=== PATIENT | female | born 1945 | race Caucasian/White ===

== ENCOUNTER 2016-12-08 09:08 | Observation (INO) | payer MEDICARE, OTHER ==
[2016-12-08] VITALS (9 sets, daily range): BP systolic 154–184; BP diastolic 67–79; PULSE 68–83; RESP 18–20; TEMP 97.8; Ht 165.1 cm; Wt 68.5 kg
[~2016-12-08] VITALS: Ht 165.1 cm; Wt 68.5 kg
[~2016-12-08 09:08] MED LIST: ATOR10TA65 PO; CIPR500T4 PO; GLIP-160 PO; LANT3I SC; LISI20TA11 PO; MTF1000T PO
[2016-12-08] MEDS ORDERED: SOD CHLORIDE 0.9% 500 ML IV STA (10:19)
[2016-12-08] MEDS ORDERED: MECLIZINE 12.5 MG TAB PO ONE (10:30)
[2016-12-08] MEDS ORDERED: ONDANSETRON 4 MG INJ IV STA (10:36)
[2016-12-08] MEDS ORDERED: morphine 4 MG/ML VIAL IV STA (10:36)
[2016-12-08 10:48] LABS: BASOPHIL # 0.1 10^3/ul (0.0-0.1); BASOPHILS % 0.6 % (0.0-2.0); EOSINOPHILS # 0.2 10^3/ul (0.0-0.5); EOSINOPHILS % 1.7 % (0.0-7.0); HEMOGLOBIN 13.6 g/dl (12.0-16.0); LYMPHOCYTES # 2.2 10^3/ul (0.8-2.9); LYMPHOCYTES % 24.1 % (15.0-51.0); MEAN CORPUSCULAR HEMOGLOBIN 26.7 pg (29.0-33.0); MEAN CORPUSCULAR HGB CONC 32.4 g/dl (32.0-37.0); MEAN CORPUSCULAR VOLUME 82.5 fl (82.0-101.0); MEAN PLATELET VOLUME 10.7 fl (7.4-10.4); MONOCYTE # 0.4 10^3/ul (0.3-0.9); MONOCYTES % 4.2 % (0.0-11.0); NEUTROPHIL # 6.2 10^3/ul (1.6-7.5); PLATELET COUNT 189 10^3/UL (140-415); RED BLOOD COUNT 5.09 10^6/ul (4.20-5.40); RED CELL DISTRIBUTION WIDTH 12.9 % (11.5-14.5)
--- NOTE | 2016-12-08 10:57 | RADRPT ---
PROCEDURE: XR Knee. CLINICAL INDICATION: Right knee pain TECHNIQUE: 3 images of the right knee are available for review. COMPARISON: None available FINDINGS: There is no acute fracture. Alignment is normal. Joint spaces are preserved. Soft tissues are grossly unremarkable. IMPRESSION: 1. No radiographic evidence of acute osseous abnormality of the right knee. RPTAT: UU .Magdy Allred MD, MD Date Time Electronically viewed and signed by .Magdy Allred MD, on 12/08/2016 10:57 .K/
--- NOTE | 2016-12-08 11:00 | ERD ---
ER Documentation Chief Complaint Chief Complaint n/v, beltran, dizziness, weakness, unable to ambulate from dizziness, weakness HPI This is a 71-year-old female history of hypertension and diabetes who presents with symptoms that started around 7 PM last night. She describes occipital headache and neck pain with associated vertigo and dizziness and ataxia. She states the pain is approximate 5 out of 10 currently. She is having difficulty walking and veering to the right. She denies any chest pain or shortness of breath. She additionally and incidentally notes right knee pain for approximately 3 days that is usually worse with walking, worse in the morning and improved throughout the day. She denies any falls or trauma. ROS All systems reviewed and are negative except as per history of present illness. Medications Home Meds Active Scripts Ciprofloxacin Hcl* (Ciprofloxacin Hcl*) 500 Mg Tablet, 500 MG PO BID for 7 Days , TAB Prov:LONNIE [employer]ANT [employer] 02/21/14 Reported Medications Insulin Glargine* (Lantus*) 100 Unit/Ml Soln, 20 UNIT SC DAILY, EA 06/11/14 Glipizide XL* (Glipizide XL*) 5 Mg Tabsr, 10 MG PO DAILY, TAB 02/28/14 Lisinopril* (Lisinopril*) 20 Mg Tablet, 20 MG PO DAILY, TAB 02/20/14 Metformin* (Glucophage*) 1,000 Mg Tablet, 1000 MG PO BID, TAB 02/20/14 Atorvastatin Calcium (Atorvastatin Calcium) 10 Mg Tab, 10 MG PO HS, TAB 02/20/14 Allergies Allergies: Coded Allergies: No Known Allergies (Verified Allergy, Unknown, 12/08/16) PMhx/Soc History of Surgery: Yes (GALL BLADDER) Anesthesia Reaction: No Hx Neurological Disorder: No Hx Respiratory Disorders: No Hx Cardiac Disorders: Yes (HTN) Hx Psychiatric Problems: No Hx Miscellaneous Medical Probl: No Hx Alcohol Use: No Hx Substance Use: No Hx Tobacco Use: No FmHx Family History: No diabetes Physical Exam Vitals Vital Signs Date Time Temp Pulse Resp B/P Pulse Ox O2 Delivery O2 Flow Rate FiO2 12/08/16 10:15 2 12/08/16 10:15 Nasal Cannula 2.0 12/08/16 10:15 97.8 70 18 171/79 100 Nasal Cannula 2.0 12/08/16 09:16 97.7 67 20 200/83 100 Physical Exam General: Well developed, well nourished, no acute distress Head: Normocephalic, atraumatic. Eyes: Pupils equally reactive, EOM intact ENT: Moist mucous membranes Neck: Supple, no lymphadenopathy Respiratory: Lungs clear bilaterally, no distress Cardiovascular: RRR, no murmurs, rubs, or gallops Abdominal: Soft, non-tender, non-distended, no peritoneal signs : Deferred MSK: No edema, no unilateral swelling, 5/5 strength. Right knee with full active and passive range of motion, slight warmth but no effusion, no bony abnormalities, 2+ dorsalis pedis and posterior tibial pulses to the right lower extremity. Neurologic: Alert and oriented, moving all extremities, normal speech, no focal weakness, no cerebellar signs, normal rapid alternating movements, unable to visualize gait Skin: No rash Psych: Normal mood Result Diagram: 12/08/16 1030 12/08/16 1030 Results 24 hrs Laboratory Tests Test 12/08/16 10:30 12/08/16 10:57 White Blood Count 9.010^3/ul Red Blood Count 5.0910^6/ul Hemoglobin 13.6g/dl Hematocrit 42.0% Mean Corpuscular Volume 82.5fl Mean Corpuscular Hemoglobin 26.7pg Mean Corpuscular Hemoglobin Concent 32.4g/dl Red Cell Distribution Width 12.9% Platelet Count 35146^3/UL Mean Platelet Volume 10.7fl Neutrophils % 69.0% Lymphocytes % 24.1% Monocytes % 4.2% Eosinophils % 1.7% Basophils % 0.6% Nucleated Red Blood Cells % 0.0/100WBC Neutrophils # 6.210^3/ul Lymphocytes # 2.210^3/ul Monocytes # 0.410^3/ul Eosinophils # 0.210^3/ul Basophils # 0.110^3/ul Nucleated Red Blood Cells # 0.010^3/ul Prothrombin Time 13.4Sec Prothrombin Time Ratio 1.0 INR International Normalized Ratio 1.02 Activated Partial Thromboplast Time 23.6Sec Sodium Level 143mmol/L Potassium Level 4.5mmol/L Chloride Level 104mmol/L Carbon Dioxide Level 27mmol/L Anion Gap 17 Blood Urea Nitrogen 18mg/dl Creatinine 0.66mg/dl Glucose Level 256mg/dl Hemoglobin A1c 9.6% Calcium Level 9.8mg/dl Troponin I < 0.012ng/ml Bedside Glucose 231mg/dL Current Medications Medications (Trade) Dose Ordered Sig/Kavon Route PRN Reason Start Time Stop Time Status Last Admin Dose Admin Sodium Chloride (NS) 500 ml @ 500 mls/hr Q1H STAT IV 12/08/16 10:19 12/08/16 11:18 DC Meclizine HCl (Antivert) 12.5 mg ONCE ONCE PO 12/08/16 10:30 12/08/16 10:31 DC Morphine Sulfate (morphine) 4 mg ONCE STAT IV 12/08/16 10:36 12/08/16 10:37 DC Ondansetron HCl (Zofran Inj) 4 mg ONCE STAT IV 12/08/16 10:36 12/08/16 10:37 DC IV Flush 10 ml 10 ml STK-MED ONCE .ROUTE 12/08/16 12:38 12/08/16 12:39 DC Sodium Chloride (NS) 100 ml @ ud STK-MED ONCE .ROUTE 12/08/16 12:38 12/08/16 12:39 DC Iodixanol (Visipaque Locm) 100 ml STK-MED ONCE .ROUTE 12/08/16 12:38 12/08/16 12:39 DC Ondansetron HCl (Zofran Inj) 4 mg ER BRIDGE PRN IV NAUSEA AND/OR VOMITING 12/08/16 13:30 12/09/16 13:29 Acetaminophen (Tylenol Tab) 650 mg ER BRIDGE PRN PO MILD PAIN/FEVER 12/08/16 13:30 12/09/16 13:29 Procedures/MDM EKG, MONITORS, & DIAGNOSTIC IMAGING: EKG: I reviewed and interpreted a 12-lead EKG. Rhythm: Normal sinus rhythm Ectopy: None Intervals: No abnormalities ST segments: No elevations or depressions T waves: No contiguous inversions Chest x-ray: I reviewed and interpreted a 1 view of the chest Mediastinum: No enlargement Cardiac silhouette: No cardiomegaly Airspace: Clear lung brown bilaterally without evidence of pneumothorax Bones: No evidence of fracture X-ray right knee: I reviewed and interpreted multiple views of the x-ray Bones: No evidence of acute fracture dislocation or subluxation Soft tissue: No evidence of foreign body CT brain: No evidence of acute intracranial process per radiologist CTA head and neck: IMPRESSION: 1. Severe segmental stenosis of M1 segment of left middle cerebral artery. 2. Multifocal moderate to severe stenosis of the right posterior cerebral artery. 3. Mild to moderate stenosis of cavernous and supraclinoid segments of the internal carotid arteries. 4. Otherwise no significant stenosis in the remainder of major intracranial arteries. A call report was made and above findings were discussed and acknowledged by Dave Carolina on 12/08/2016 1:26 PM . RPTAT: GG LAB INTERPRETATION: No significant leukocytosis, negative troponin MEDICAL DECISION MAKING: The patient presents with multiple issues including headache, neck pain, vertigo and ataxia. 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 She is greater than 12 hours of symptoms. She is describing ataxia. Given her age and hypertension this does raise a concern for central vertigo, consideration for VBI or stroke. Given her pain there is some consideration for dissection. For this reason I believe CT imaging of the head as well as CTA of the head and neck is indicated. The patient will benefit from inpatient hospitalization for MRI imaging. Additionally the patient is describing incidental right knee pain. I believe this is most consistent with osteoarthritis, no evidence of septic arthritis or fracture. No evidence of DVT. X-ray imaging is indicated. Further outpatient follow-up would be appropriate. ER COURSE: The patient continues to be well-appearing, aspirin provided. Blood pressure improving and permissive hypertension will be observed. The patient will be admitted for further management and MRI imaging of the brain. I kept the patient and/or family informed of laboratory and diagnostic imaging results throughout the emergency room course. DISPOSITION PLAN: Telemetry admission to rule out stroke CONSULTATION: Accepting care team and consultations: I discussed the current laboratory data, diagnostic imaging and emergency care provided. Admitting team: Dr. Amin Admitting team indication: Insurance directed Departure Diagnosis: Primary Impression: Hypertensive urgency Additional Impression: Ataxia Condition: Stable DAVE GERARDO MD Dec 08, 2016 11:00
[2016-12-08 11:11] LABS: ANION GAP 17 (8-16); BLOOD UREA NITROGEN 18 mg/dl (7-20); CALCIUM 9.8 mg/dl (8.4-10.2); CARBON DIOXIDE 27 mmol/L (21-31); CHLORIDE 104 mmol/L (97-110); CREATININE 0.66 mg/dl (0.44-1.00); GLUCOSE 256 mg/dl (70-220); POTASSIUM 4.5 mmol/L (3.5-5.1); SODIUM 143 mmol/L (135-144)
[2016-12-08 11:16] LABS: PARTIAL THROMBOPLASTIN TIME 23.6 Sec (25.0-35.0)
[2016-12-08 11:23] LABS: INR 1.02; PROTIME 13.4 Sec (12.2-14.2)
[2016-12-08 11:28] LABS: TROPONIN-I < 0.012 ng/ml (0.00-0.12)
--- NOTE | 2016-12-08 11:42 | RADRPT ---
PROCEDURE: CT Brain without contrast. CLINICAL INDICATION: Possible stroke. Nausea. TECHNIQUE: CT scan of the brain was performed on a multidetector high-resolution CT scan. Axial im aging was obtained of the brain without contrast administration. Coronal and sagittal reformatted i mages were obtained from the axial source images. Standard CT scan of the head without contrast prot ocols were performed. The total exam CTDI equals 44.4 mGy and the total exam DLP equals 720.23 mGy-cm. One or more of the following dose reduction techniques were used: - Automated exposure control. - Adjustment of the mA and/or kV according to patient size. Use of iterative reconstruction technique. COMPARISON: CT head without contrast 06/11/2014 FINDINGS: The ventricular system and peripheral CSF spaces are proportionate prominent consistent with mild ge neralized cerebral volume loss. Negative for intracranial masses hemorrhages or midline shift. The g ray-white matter junction is unremarkable. There is atherosclerotic heart plaque involving the jerardo nous carotid arteries. There is chronic bilateral ethmoid left frontal and right maxillary sinus dis ease. The mastoids are unremarkable. The bones of the calvarium are intact. IMPRESSION: 1. No significant change. 2. Mild generalized cerebral volume loss without evidence of intracranial masses hemorrhages or mid line shift. 3. Chronic sinusitis. RPTAT:AAJJ Physician Leona Date Time Electronically viewed and signed by Physician Leona on 12/08/2016 11:42 BM/
--- NOTE | 2016-12-08 11:44 | RADRPT ---
PROCEDURE: XR Chest 1 View. CLINICAL INDICATION: Shortness of breath. TECHNIQUE: AP view of the chest was obtained. COMPARISON: June 11, 2014 FINDINGS: The heart size is within normal limits. Calcified atherosclerosis is noted in the aorta. Scattered atelectasis is noted in both lungs. No consolidations are identified. No pneumothorax is seen. . El evated right hemidiaphragm is noted. Osseous structures are intact. IMPRESSION: Calcified atherosclerosis in the aorta. Scattered atelectasis in both lungs. Elevated right hemidiaphragm. RPTAT: AA .Tony Sosa MD, MD Date Time Electronically viewed and signed by .Tony Sosa MD, MD on 12/08/2016 11:43 .P/
[2016-12-08] MEDS ORDERED: SOD CHLORIDE 0.9% 100 ML ONE (12:38)
[2016-12-08] MEDS ORDERED: IODIXANOL LOCM 100 ML BTL ONE (12:38)
--- NOTE | 2016-12-08 13:08 | RADRPT ---
PROCEDURE: CT SCAN angiogram neck WITH IV CONTRAST CLINICAL INDICATION: Stroke, dizziness, vomiting TECHNIQUE: Transaxial slices with IV contrast was obtained throughout the entire neck. Additional s agittal and coronal reconstruction images were acquired. One of more of the following dose reduction techniques were utilized: -automatic exposure control.-adjustment of the mA and/or kV according to patient size. -Use of iterative reconstruction technique. Contrast: ... Radiation Dose: CTDI is 19.53 mGy. DLP is 810.65 mGy-cm. COMPARISON: CT head 12/08/2016 FINDINGS: Normal origin of the great vessels noted from the aortic arch. Tortuous right brachial cephalic alice ry is seen. Both common carotid arteries are patent bilateral vertebral arteries are patent and equa l caliber. Bilateral ICA patent in the cervical portion, carotid canal. Moderate calcification intra cranial ICA noted at the level of cavernous sinus. Bilateral external carotid arteries are also busch nt. Basilar artery, posterior cerebral artery, right posterior communicating artery, M1, M2, A1, A2 segm ents are patent and without aneurysm, AV fistula or vascular occlusion noted. Limited slices through the lung apices demonstrate cardiomegaly with an unremarkable lung brown. No saddle emboli or mediastinal adenopathy noted. Degenerative changes noted in the dorsal spine. Enla rged right lobe of thyroid with a calcified 1.7 cm nodule is noted. Both jugular veins are patent. M oderate opacification of the ethmoid, right maxillary, left frontal air cells seen bilaterally IMPRESSION: Patent common carotid, internal, external carotid arteries in the neck. Patent [place]. Pansinusitis RPTAT: AAOO Physician Sharona Date Time Electronically viewed and signed by Physician Sharona on 12/08/2016 13:08 MB/
[2016-12-08] MEDS ORDERED: ACETAMINOPHEN 325 MG TAB PO PRN ×2 (13:30→14:30)
[2016-12-08] MEDS ORDERED: ONDANSETRON 4 MG INJ IV PRN ×2 (13:30→14:30)
--- NOTE | 2016-12-08 13:32 | RADRPT ---
AMENDMENT: 12/08/2016 2:10:04 PM Marc Condon M.d Correction: CT angiogram of the head was revisited. There is severe left M1 Stenosis noted. PROCEDURE: CTA head and neck CLINICAL INDICATION: Neurological deficit. CVA. TECHNIQUE: The study was performed utilizing multidetector CT scanner. Direct thin section axial s ections were obtained through the head and neck after the uneventful administration of 90 cc of Visi paque 320 nonionic intravenous contrast material. Coronal and sagittal as well as maximal intensity projection reformations were obtained. 3-D images were made. The images were reviewed on a PACS [facility]. One or more the following does reduction techniques were utilized: Automated exposure con trol, adjustment of the mA/ or kV according to patient's size, or use of iterative reconstruction te chnique. The total CTDIvol is 14.85, 19.53 mGy and the DLP is 818.07 mGy-cm. COMPARISON: Brain CT of the same day. FINDINGS: There are atherosclerosis calcifications of cavernous and supraclinoid segments of the internal ow[place] arteries with associated mild to moderate stenosis. The petrous segments of internal carotid art eries are patent without significant stenosis. There is severe segmental stenosis of M1 segment of left middle cerebral artery. There is reconstitu tion of flow in the to this segments of the left middle cerebral artery. The proximal right middle cerebral artery and bilateral anterior cerebral arteries are patent withou t significant stenosis. Multifocal moderate to severe stenosis of the right posterior cerebral artery is noted. The intracranial vertebral arteries, basilar artery, and left foci cerebral artery are also unremark able without significant stenosis. No aneurysm or vascular malformation is identified. IMPRESSION: 1. Severe segmental stenosis of M1 segment of left middle cerebral artery. 2. Multifocal moderate to severe stenosis of the right posterior cerebral artery. 3. Mild to moderate stenosis of cavernous and supraclinoid segments of the internal carotid arterie s. 4. Otherwise no significant stenosis in the remainder of major intracranial arteries. A call report was made and above findings were discussed and acknowledged by Dave Carolina on 12/08/2016 1:26 PM . RPTAT: GG Merlin Condon, Physician Date Time Electronically viewed and signed by Merlin Condon, Physician on 12/08/2016 14:10 MB/
[2016-12-08] MEDS ORDERED: ASPIRIN 81 MG TAB PO ONE (14:00)
[2016-12-08] MEDS ORDERED: ACETAMINOPHEN 650 MG SUPP PR PRN (14:30)
[2016-12-08] MEDS ORDERED: LISINOPRIL 20 MG TAB PO ONE (14:30)
[2016-12-08] MEDS ORDERED: HYDROCODONE/APAP (5/325) TAB PO PRN (14:30)
[2016-12-08] MEDS ORDERED: NACL 0.9% 3 ML SYG IV SCH (14:30)
--- NOTE | 2016-12-08 14:33 | HP ---
Date/Time of Note Date/Time of Note DATE: 12/08/16 TIME: 14:13 Assessment/Plan VTE Prophylaxis VTE Prophylaxis Intervention: LMWH Lines/Catheters IV [facility] Type [facility] Saline Lock Assessment/Plan Chief Complaint/Hosp Course 71-year-old female with a past medical history of hypertension, hypercholesterolemia, presented to the emergency room for evaluation of dizziness associated with nausea and vomiting started overnight. 1. 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 CTA with Severe segmental stenosis of M1 segment of left middle cerebral artery, Multifocal moderate to severe stenosis of the right posterior cerebral artery. CTA neck with no significant stenosis of carotid arteries. PLAN: -Admit as inpatient for further neurology evaluation. -Start maximal medical therapy with dual antiplatelet agents, high intensity statin and antihypertensives. -Lifestyle modification with weight reduction and healthy diet advised. 2. Possible vertigo/disequilibrium. Symptoms resolved at this time. -Meclizine trial. Will consider adding low-dose benzodiazepine if indicated. -Recommend outpatient ENT evaluation. 3. Hypertensive urgency. -Resume lisinopril and adjust dose to 40 mg for better blood pressure control. 4. Hypercholesterolemia. -Resume statin and adjust dose to high intensity. 5.DMII -Obtain A1c. Accu-Cheks/ISS/Lantus. -Carb controlled diet. DVT prophylaxis: Lovenox. Plan: Patient will be admitted to inpatient unit. We will also obtain fasting lipid panel, A1c and TSH level. Patient will be started on a diet. Patient will have neurology evaluation. Patient also will have PT evaluation and treatment. Rest of the management depend on hospital course. Approximately 60 minutes was spent on this history and physical. Patient is seen in collaboration with Dr. Randall Problems: HPI/ROS Admit Date/Time Admit Date/Time Hx of Present Illness This is a 71-year-old female history of type 2 diabetes, hypertension and hypercholesterolemia who presented with dizziness and unsteady gait associated with headache, nausea and vomiting which started around 7 PM last night. She denied any chest pain, palpitation, numbness/tingling, vision changes, speech difficulties, oral, ear discharges, earache, tinnitus or shortness of breath. Patient denied any falls. Initial labs unremarkable except for elevated blood glucose 256. Patient also had elevated blood pressure 200/83 upon presentation. EKG without any ST or T- wave changes. Patient was given some IV fluids , antiemetics and meclizine in the emergency room with some improvement in her symptoms. A CTA of brain showed Severe segmental stenosis of M1 segment of left middle cerebral artery, Multifocal moderate to severe stenosis of the right posterior cerebral artery and Mild to moderate stenosis of cavernous and supraclinoid segments of the internal carotid arteries. CTA neck was negative for any carotid stenosis. Patient was admitted for further evaluation. ROS A 12 point review of system was assessed and is negative other than what is mentioned in the HPI. PMH/Family/Social Past Surgical History See HPI Social History Patient denied history of alcohol, smoking or illicit drug use. Smoking Status: Never smoker Exam/Review of Systems Vital Signs Vitals Vital Signs Date Time Temp Pulse Resp B/P Pulse Ox O2 Delivery O2 Flow Rate FiO2 12/08/16 10:15 2 12/08/16 10:15 Nasal Cannula 12/08/16 10:15 97.8 70 18 171/79 100 Exam Exam General: Well developed,adequately built female, not in any acute distress . HEENT: Normocephalic, Atraumatic, No laceration or hematoma; Eyes: PEERL, Conjunctiva clear, Anicteric sclera Neck: Supple without any lymphadenopathy, nontender, no JVD, no carotid bruits, trachea midline, no thyromegaly Cardiac: S1, S2 auscultated, regular rhythm and rate, no mumurs or gallop Pulmonary: Normal respiratory effort. Chest clear to auscultation bilaterally, no adventitious breath sounds GI: Abdomen normal to inspection. Soft, non tender, non- distended, no masses, no rebound tenderness or guarding. Bowel sounds active on all four quadrants Genitourinary: Deferred Extremities: No cyanosis, clubbing, or edema. Pulses [2+] bilaterally. Full ROM on all four extremities. No focal weakness appreciated. Neurologic: Alert to person, place, time, and situation. Affect appropriate, intact sensation. Skin: Clean,dry, and intact. No ecchymosis, no rashes, or lesions Labs Result Diagram: 12/08/16 1030 12/08/16 1030 Medications Medications Current Medications Insulin Glargine (Lantus) 20 unit DAILY SC ; Start 12/09/16 at 09:00; Status UNV Lisinopril (Zestril) 20 mg DAILY PO ; Start 12/09/16 at 09:00; Status UNV Atorvastatin Calcium (Lipitor) 80 mg HS PO ; Start 12/08/16 at 21:00; Status UNV Aspirin (Aspirin) 81 mg DAILY PO ; Start 12/09/16 at 09:00; Status UNV Clopidogrel Bisulfate 75 mg 75 mg DAILY PO ; Start 12/09/16 at 09:00; Status UNV Sodium Chloride (NS) 1,000 ml @ 75 mls/hr [id number] IV ; Start 12/08/16 at 14:03 ; Status UNV Ondansetron HCl (Zofran Inj) 4 mg Q6H PRN IV NAUSEA AND/OR VOMITING; Start 12/08/16 at 14:30; Status UNV Acetaminophen (Tylenol Tab) 650 mg Q6H PRN PO PAIN LEVEL 1-3 OR FEVER; Start 12/08/16 at 14:30; Status UNV Acetaminophen (Tylenol Supp) 650 mg Q6H PRN CO PAIN LEVEL 1-3 OR FEVER; Start 12/08/16 at 14:30; Status UNV Acetaminophen/ Hydrocodone Bitart ([place] (5/325)) 1 tab Q6H PRN PO MODERATE PAIN LEVEL 4-6; Start 12/08/16 at 14:30; Status UNV Enoxaparin Sodium (Lovenox) 40 mg DAILY SC ; Start 12/09/16 at 09:00; Status UNV Miscellaneous Information (* Miscellaneous Pharmacy Order) Discontinue current oral sulfonylur... ONCE ONCE XX ; Start 12/08/16 at 14:30; Stop 12/08/16 at 14: 31; Status UNV Diagnostic Test (Pha) (Accu-Chek) XX ; Start 12/09/16 at 02:00; Status UNV Miscellaneous Information (* Miscellaneous Pharmacy Order) HYPOGLYCEMIA PROTOCOL w... ONCE ONCE XX ; Start 12/08/16 at 14:30; Stop 12/08/16 at 14:31; Status UNV Miscellaneous Information (* Miscellaneous Pharmacy Order) Discontinue all previ... ONCE ONCE XX ; Start 12/08/16 at 14:30; Stop 12/08/16 at 14:31; Status UNV Meclizine HCl (Antivert) 25 mg BID PO ; Start 12/08/16 at 21:00; Status UNV KATHERIN AYALA NP Dec 08, 2016 14:24
[2016-12-08] MEDS ORDERED: GLUCAGON 1 MG INJ IM PRN (15:00)
[2016-12-08] MEDS ORDERED: GLUCOSE GEL 15 GRAM TUBE PO PRN ×2 (15:00)
[2016-12-08] MEDS ORDERED: GLUCOSE GEL 15 GRAM TUBE BUCCAL PRN (15:00)
[2016-12-08] MEDS ORDERED: DEXTROSE 50% 50 ML SYRINGE IV PRN ×2 (15:00)
[2016-12-08] MEDS: SOD CHLORIDE 0.9% 1,000 ML IV SCH (17:00)
[2016-12-08] MEDS ORDERED: INFLUENZA VIRUS VACCINE 0.5 ML (DISPENSING) IM* ONE (18:30)
--- NOTE | 2016-12-08 20:27 | RADRPT ---
Echocardiogram Report Patient Name: GABI RASMUSSEN Gender: Female Date: 1945 Study Date: 08-Dec-2016 [employer]: [facility] Location: [facility] Ref. Physician: KATHERIN AYALA Quality: Adequate Procedures: Transthoracic echocardiogram with complete 2D, M-Mode, and doppler examination. Indications: Dizziness. 2D/M Mode Doppler Measurement Value Normal Ranges Measurement Value Normal Ranges LVIDd 2D 3.8 3.5 - 5.6 cm AV Peak Cameron 1.2 m/sec LVIDs 2D 2.3 2.1 - 4.1 cm AV Peak PG 6.0 mmHg FS 2D 38.9 % LVOT Peak Cameron 0.9 m/sec LVPWd 2D 1.3 0.6 - 1.1 cm LVOT Peak PG 4.0 mmHg IVSd 2D 1.3 0.6 - 1.1 cm MV E Peak Cameron 0.8 m/sec IVS/LVPW 2D 1.0 MV A Peak Cameron 1.1 m/sec AoR Diam 2D 2.5 2.0 - 3.7 cm MV E/A 0.8 LA/Ao 2D 2 0 - 1 MV Decel Time 246 msec EDV 2D 54.0 cm3 MV E/A 0.8 ESV 2D 12.3 cm3 TR Peak Cameron 3.6 m/sec LA Dimen 2D 4.2 2.3 - 4.0 cm TR Peak PG 51.0 mmHg RVSP 54.0 mmHg Findings Left Ventricle: Hyperdynamic left ventricular systolic function. Normal left ventricular cavity size. Mild concentric left ventricular hypertrophy. Ejection fraction is visually estimated at >65 %. Tissue Doppler/Mitral Doppler indices are consistent with impaired relaxation (Stage I diastolic dysfunction). Right Ventricle: Normal right ventricular size. Normal right ventricular systolic function. Left Atrium: There is mild enlargement of left atrium. Right Atrium: The right atrium is normal in size. Mitral Valve: Mild mitral leaflet calcification. Mild mitral annular calcification. Mild mitral valve regurgitation. Aortic Valve: No significant aortic stenosis. Aortic cusps appear mildly calcified. Trace aortic valve regurgitation. Tricuspid Valve: Normal appearance of the tricuspid valve. Estimated peak PA systolic pressure 54 mmHg. There is mild to moderate tricuspid regurgitation. Pulmonic Valve: Pulmonic valve not well visualized. There is trace pulmonic regurgitation. Pericardium: Normal pericardium with no significant pericardial effusion. Aorta: Normal aortic root. IVC: Normal size and normal respiratory collapse consistent with normal right atrial pressure. Conclusions 1.Hyperdynamic left ventricular systolic function. Normal left ventricular cavity size. Mild concentric left ventricular hypertrophy. Ejection fraction is visually estimated at >65 %. Tissue Doppler/Mitral Doppler indices are consistent with impaired relaxation (Stage I diastolic dysfunction). 2.There is mild enlargement of left atrium. 3.Mild mitral leaflet calcification. Mild mitral annular calcification. Mild mitral valve regurgitation. 4.No significant aortic stenosis. Aortic cusps appear mildly calcified. Trace aortic valve regurgitation. 5.Normal appearance of the tricuspid valve. Estimated peak PA systolic pressure 54 mmHg. There is mild to moderate tricuspid regurgitation. 6.Pulmonic valve not well visualized. There is trace pulmonic regurgitation. Electronically Signed By: Tony Triana 08-Dec-2016 20:26:10 -0700 Patient Name: GABI RASMUSSEN Study Date: 08-Dec-2016 [id number]
[2016-12-08] MEDS: ATORVASTATIN 80 MG TAB PO SCH (21:32)
[2016-12-08] MEDS: MECLIZINE 25 MG TAB PO SCH (21:32)
[2016-12-08] MEDS: INSULIN ASPART [NOVOLOG] 3 ML PEN SC SCH (21:39)
[2016-12-08] MEDS ORDERED: hydrALAzine 20 MG INJ IV PRN (22:30)
[2016-12-09] VITALS (12 sets, daily range): BP systolic 145–170; BP diastolic 70–79; PULSE 63–104; RESP 16–18
[2016-12-09] MEDS: ACCU-CHEK XX SCH (02:31)
[2016-12-09] MEDS: SOD CHLORIDE 0.9% 1,000 ML IV SCH ×3 (05:11→21:05)
[2016-12-09 07:25] LABS: BASOPHIL # 0.1 10^3/ul (0.0-0.1); BASOPHILS % 0.8 % (0.0-2.0); EOSINOPHILS # 0.4 10^3/ul (0.0-0.5); EOSINOPHILS % 5.3 % (0.0-7.0); HEMATOCRIT 40.2 % (37.0-47.0); HEMOGLOBIN 12.5 g/dl (12.0-16.0); LYMPHOCYTES # 2.9 10^3/ul (0.8-2.9); LYMPHOCYTES % 43.7 % (15.0-51.0); MEAN CORPUSCULAR HEMOGLOBIN 25.9 pg (29.0-33.0); MEAN CORPUSCULAR HGB CONC 31.1 g/dl (32.0-37.0); MEAN CORPUSCULAR VOLUME 83.4 fl (82.0-101.0); MEAN PLATELET VOLUME 10.8 fl (7.4-10.4); MONOCYTE # 0.5 10^3/ul (0.3-0.9); MONOCYTES % 7.1 % (0.0-11.0); NEUTROPHIL # 2.9 10^3/ul (1.6-7.5); NEUTROPHILS % 42.6 % (39.0-77.0); PLATELET COUNT 173 10^3/UL (140-415); RED BLOOD COUNT 4.82 10^6/ul (4.20-5.40); RED CELL DISTRIBUTION WIDTH 13.3 % (11.5-14.5); WHITE BLOOD COUNT 6.7 10^3/ul (4.8-10.8)
[2016-12-09 07:54] LABS: ALBUMIN 3.3 g/dl (3.3-4.9); ALBUMIN/GLOBULIN RATIO 1.06; BILIRUBIN,INDIRECT 0.3 mg/dl (0-1.1); BILIRUBIN,TOTAL 0.3 mg/dl (0.2-1.3); CREATININE 0.7 mg/dl (0.44-1.00); MAGNESIUM 1.4 mg/dl (1.7-2.5); PHOSPHORUS 3.9 mg/dl (2.5-4.9); POTASSIUM 4.2 mmol/L (3.5-5.1); TOTAL PROTEIN 6.4 g/dl (6.1-8.1)
[2016-12-09] MEDS: INSULIN ASPART [NOVOLOG] 3 ML PEN SC SCH ×4 (08:12→21:00)
[2016-12-09] MEDS ORDERED: LISINOPRIL 20 MG TAB PO SCH (09:00)
[2016-12-09] MEDS: ENOXAPARIN 40 MG/0.4 ML SYG SC SCH (09:14)
--- NOTE | 2016-12-09 09:15 | PN ---
Date/Time of Note Date/Time of Note DATE: 12/09/16 TIME: 09:11 Assessment/Plan VTE Prophylaxis VTE Prophylaxis Intervention: LMWH Lines/Catheters IV C[facility]ter Type [facility] Peripheral IV Assessment/Plan Chief Complaint/Hosp Course 71-year-old female with a past medical history of hypertension, hypercholesterolemia, presented to the emergency room for evaluation of dizziness associated with nausea and vomiting started overnight. 1. 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 CTA with Severe segmental stenosis of M1 segment of left middle cerebral artery, Multifocal moderate to severe stenosis of the right posterior cerebral artery. CTA neck with no significant stenosis of carotid arteries. PLAN: -F/u with neurology recs on further studies/management -Continue maximal medical therapy with dual antiplatelet agents, high intensity statin and antihypertensives. -Lifestyle modification with weight reduction and healthy diet advised. 2. Possible vertigo/disequilibrium. Symptoms resolved at this time. -Continue Meclizine. Will consider adding low-dose benzodiazepine if indicated. -Recommend outpatient ENT evaluation. 3. Hypertensive urgency.Now stable. -Continue Lisinopril 40 mg. Patient may need further addition of BP meds-will monitor trends. 4. Hypercholesterolemia. -Continue Lipitor 80mg 5.Poor;y controlled DMII. A1C 9.7 -Continue Accu-Cheks/ISS/Lantus. -Carb controlled diet, DM education. DVT prophylaxis: Lovenox. Plan: PT eval/tx. F/u neurology recs. Patient is seen in collaboration with Dr. Randall Problems: Subjective 24 Hr Interval Summary Free Text/Dictation No acute distress. Exam/Review of Systems Vital Signs Vitals Vital Signs Date Time Temp Pulse Resp B/P Pulse Ox O2 Delivery O2 Flow Rate FiO2 12/09/16 08:27 64 12/09/16 07:18 98.1 18 158/70 96 12/08/16 19:07 Room Air 12/08/16 14:00 2.0 Intake and Output 12/08/16 12/08/16 12/09/16 15:00 23:00 07:00 Intake Total 1475 ml Balance 1475 ml Exam General: Well developed,adequately built female, not in any acute distress . HEENT: Normocephalic, Atraumatic, No laceration or hematoma; Eyes: PEERL, Conjunctiva clear, Anicteric sclera Neck: Supple without any lymphadenopathy, nontender, no JVD, no carotid bruits, trachea midline, no thyromegaly Cardiac: S1, S2 auscultated, regular rhythm and rate, no mumurs or gallop Pulmonary: Normal respiratory effort. Chest clear to auscultation bilaterally, no adventitious breath sounds GI: Abdomen normal to inspection. Soft, non tender, non- distended, no masses, no rebound tenderness or guarding. Bowel sounds active on all four quadrants Genitourinary: Deferred Extremities: No cyanosis, clubbing, or edema. Pulses [2+] bilaterally. Full ROM on all four extremities. No focal weakness appreciated. Neurologic: Alert to person, place, time, and situation. Affect appropriate, intact sensation. Skin: Clean,dry, and intact. No ecchymosis, no rashes, or lesions Results Result Diagram: 12/09/16 0659 12/09/16 0659 Results 24 hrs Laboratory Tests Test 12/08/16 10:30 12/08/16 10:57 12/08/16 16:27 12/08/16 21:35 White Blood Count 9.0 Red Blood Count 5.09 Hemoglobin 13.6 Hematocrit 42.0 Mean Corpuscular Volume 82.5 Mean Corpuscular Hemoglobin 26.7 L Mean Corpuscular Hemoglobin Concent 32.4 Red Cell Distribution Width 12.9 Platelet Count 189 Mean Platelet Volume 10.7 #H Neutrophils % 69.0 Lymphocytes % 24.1 Monocytes % 4.2 Eosinophils % 1.7 Basophils % 0.6 Nucleated Red Blood Cells % 0.0 Neutrophils # 6.2 Lymphocytes # 2.2 Monocytes # 0.4 Eosinophils # 0.2 Basophils # 0.1 Nucleated Red Blood Cells # 0.0 Prothrombin Time 13.4 Prothrombin Time Ratio 1.0 INR International Normalized Ratio 1.02 Activated Partial Thromboplast Time 23.6 L Sodium Level 143 Potassium Level 4.5 Chloride Level 104 Carbon Dioxide Level 27 Anion Gap 17 H Blood Urea Nitrogen 18 Creatinine 0.66 Glucose Level 256 H Hemoglobin A1c 9.7 H Calcium Level 9.8 Troponin I < 0.012 Triglycerides Level 191 H Cholesterol Level 172 LDL Cholesterol, Calculated 91 HDL Cholesterol 43 Cholesterol/HDL Ratio 4.0 Thyroid Stimulating Hormone (TSH) 0.581 Bedside Glucose 231 H 245 H 229 H Test 12/09/16 02:26 11/2/17 06:59 12/09/16 08:02 Bedside Glucose 166 168 White Blood Count 6.7 # Red Blood Count 4.82 Hemoglobin 12.5 Hematocrit 40.2 Mean Corpuscular Volume 83.4 Mean Corpuscular Hemoglobin 25.9 L Mean Corpuscular Hemoglobin Concent 31.1 L Red Cell Distribution Width 13.3 Platelet Count 173 Mean Platelet Volume 10.8 H Neutrophils % 42.6 Lymphocytes % 43.7 Monocytes % 7.1 Eosinophils % 5.3 Basophils % 0.8 Nucleated Red Blood Cells % 0.0 Neutrophils # 2.9 Lymphocytes # 2.9 Monocytes # 0.5 Eosinophils # 0.4 Basophils # 0.1 Nucleated Red Blood Cells # 0.0 Sodium Level 143 Potassium Level 4.2 Chloride Level 109 Carbon Dioxide Level 27 Anion Gap 11 Blood Urea Nitrogen 16 Creatinine 0.70 Glucose Level 181 Calcium Level 9.0 Phosphorus Level 3.9 Magnesium Level 1.4 L Total Bilirubin 0.3 Direct Bilirubin 0.00 Indirect Bilirubin 0.3 Aspartate Amino Transf (AST/SGOT) 23 Alanine Aminotransferase (ALT/SGPT) 34 Alkaline Phosphatase 76 Total Protein 6.4 Albumin 3.3 Globulin 3.10 Albumin/Globulin Ratio 1.06 Medications Medications Current Medications Insulin Glargine (Lantus) 20 unit DAILY SC ; Start 12/09/16 at 09:00 Atorvastatin Calcium (Lipitor) 80 mg HS PO Last administered on 12/08/16 21:32 ; Admin Dose 80 MG; Start 12/08/16 at 21:00 Aspirin (Aspirin) 81 mg DAILY PO ; Start 12/09/16 at 09:00 Clopidogrel Bisulfate 75 mg 75 mg DAILY PO ; Start 12/09/16 at 09:00 Sodium Chloride (NS) 1,000 ml @ 75 mls/hr [id number] IV Last administered on 12/09 05:11; Admin Dose 75 MLS/HR; Start 12/08/16 at 14:03 Ondansetron HCl (Zofran Inj) 4 mg Q6H PRN IV NAUSEA AND/OR VOMITING; Start 12/08/16 at 14:30 Acetaminophen (Tylenol Tab) 650 mg Q6H PRN PO PAIN LEVEL 1-3 OR FEVER; Start 12/08/16 at 14:30 Acetaminophen (Tylenol Supp) 650 mg Q6H PRN RI PAIN LEVEL 1-3 OR FEVER; Start 12/08/16 at 14:30 Acetaminophen/ Hydrocodone Bitart ([place] (5/325)) 1 tab Q6H PRN PO MODERATE PAIN LEVEL 4-6; Start 12/08/16 at 14:30 Enoxaparin Sodium (Lovenox) 40 mg DAILY SC ; Start 12/09/16 at 09:00 Diagnostic Test (Pha) (Accu-Chek) 1 ea 02 XX Last administered on 12/09/16 02: 31; Admin Dose 1 EA; Start 12/09/16 at 02:00 Meclizine HCl (Antivert) 25 mg BID PO Last administered on 12/08/16 21:32; Admin Dose 25 MG; Start 12/08/16 at 21:00 Lisinopril (Zestril) 40 mg DAILY PO ; Start 12/09/16 at 09:00 Miscellaneous Information 1 ea NOTE XX ; Start 12/08/16 at 15:00 Glucose (Glutose) 15 gm Q15M PRN PO DECREASED GLUCOSE; Start 12/08/16 at 15:00 Glucose (Glutose) 22.5 gm Q15M PRN PO DECREASED GLUCOSE; Start 12/08/16 at 15: 00 Dextrose (D50w Syringe) 25 ml Q15M PRN IV DECREASED GLUCOSE; Start 12/08/16 at 15:00 Dextrose (D50w Syringe) 50 ml Q15M PRN IV DECREASED GLUCOSE; Start 12/08/16 at 15:00 Glucagon (Glucagen) 1 mg Q15M PRN IM DECREASED GLUCOSE; Start 12/08/16 at 15:00 Glucose (Glutose) 15 gm Q15M PRN BUCCAL DECREASED GLUCOSE; Start 12/08/16 at 15 :00 Hydralazine HCl (Apresoline) 10 mg Q6H PRN IV ELEVATED SYSTOLIC BP; Start 12/08 at 22:30 KATHERIN AYALA NP Dec 09, 2016 09:15
[2016-12-09] MEDS: INSULIN GLARGINE [LANtus] 3 ML PEN SC SCH (09:17)
[2016-12-09] MEDS: MECLIZINE 25 MG TAB PO SCH ×2 (09:18→20:53)
[2016-12-09] MEDS: CLOPIDOGREL 75 MG TAB PO SCH (09:18)
[2016-12-09] MEDS: ASPIRIN 81 MG TAB PO SCH (09:18)
[2016-12-09] MEDS: LISINOPRIL 20 MG TAB PO SCH (09:19)
--- NOTE | 2016-12-09 11:59 | CONS ---
Date/Time of Note Date/Time of Note DATE: 12/09/16 TIME: 11:55 Assessment/Plan Assessment/Plan Chief Complaint/Hosp Course 71 yo female with uncontrolled HTN, DM, obesity p/w vertigo. CTA suggestive of Left M1 intracranial stenosis likely intracranial atherosclerosis. Recommendations: SBP less than 140/90 intermission coordinator goal dual antiplatelet therapy with aspirin 81 mg and plavix 75 mg daily would use high intensity statin Lipitor 80 mg qhs for stroke prevention dietary modification weight loss check an MRI Brain w/o contrast to rule out possible infarction although non focal neurologic exam at this time PT/OT/Speech DVT ppx outpatient neurology fu advised Dr. Hardwick will be covering tomorrow and weekend should any further questions /concerns arise Problems: Consultation Date/Type/Reason Admit Date/Time 12/09/16 Date of Consultation: Dec 09, 2016 Type of Consultation: Neurology Reason for Consultation evaluation for intracranial stenosis Referring Provider: KATHERIN AYALA NP Hx of Present Illness 71 year old female w hx of HTN, HLD, obesity p/w nausea and vomiting w vertigo. Imaging on admission CTA showed severe stenosis of the Left MCA M1 segment and multifocal to moderate stenosis of Right [employer]. Vertigo has resolved she denies hx of prior symptoms, denies headaches no visual sx, no focal weakness or dysphagia. 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, DTR's symmetric, nl mental status, nl speech, nl strength Results Result Diagram: 12/09/16 0659 12/09/16 0659 Results 24 hrs Laboratory Tests Test 12/08/16 16:27 12/08/16 21:35 12/09/16 02:26 12/09/16 06:59 Bedside Glucose 245 H 229 H 166 White Blood Count 6.7 # Red Blood Count 4.82 Hemoglobin 12.5 Hematocrit 40.2 Mean Corpuscular Volume 83.4 Mean Corpuscular Hemoglobin 25.9 L Mean Corpuscular Hemoglobin Concent 31.1 L Red Cell Distribution Width 13.3 Platelet Count 173 Mean Platelet Volume 10.8 H Neutrophils % 42.6 Lymphocytes % 43.7 Monocytes % 7.1 Eosinophils % 5.3 Basophils % 0.8 Nucleated Red Blood Cells % 0.0 Neutrophils # 2.9 Lymphocytes # 2.9 Monocytes # 0.5 Eosinophils # 0.4 Basophils # 0.1 Nucleated Red Blood Cells # 0.0 Sodium Level 143 Potassium Level 4.2 Chloride Level 109 Carbon Dioxide Level 27 Anion Gap 11 Blood Urea Nitrogen 16 Creatinine 0.70 Glucose Level 181 Calcium Level 9.0 Phosphorus Level 3.9 Magnesium Level 1.4 L Total Bilirubin 0.3 Direct Bilirubin 0.00 Indirect Bilirubin 0.3 Aspartate Amino Transf (AST/SGOT) 23 Alanine Aminotransferase (ALT/SGPT) 34 Alkaline Phosphatase 76 Total Protein 6.4 Albumin 3.3 Globulin 3.10 Albumin/Globulin Ratio 1.06 Test 12/09/16 08:02 12/09/16 09:16 Bedside Glucose 168 284 H Medications Medications Current Medications Insulin Glargine (Lantus) 20 unit DAILY SC Last administered on 12/09/16 09:17 ; Admin Dose 20 UNIT; Start 12/09/16 at 09:00 Atorvastatin Calcium (Lipitor) 80 mg HS PO Last administered on 12/08/16 21:32 ; Admin Dose 80 MG; Start 12/08/16 at 21:00 Aspirin (Aspirin) 81 mg DAILY PO Last administered on 12/09/16 09:18; Admin Dose 81 MG; Start 12/09/16 at 09:00 Clopidogrel Bisulfate 75 mg 75 mg DAILY PO Last administered on 12/09/16 09:18 ; Admin Dose 75 MG; Start 12/09/16 at 09:00 Sodium Chloride (NS) 1,000 ml @ 75 mls/hr [id number] IV Last administered on 12/09 05:11; Admin Dose 75 MLS/HR; Start 12/08/16 at 14:03 Ondansetron HCl (Zofran Inj) 4 mg Q6H PRN IV NAUSEA AND/OR VOMITING; Start 12/08/16 at 14:30 Acetaminophen (Tylenol Tab) 650 mg Q6H PRN PO PAIN LEVEL 1-3 OR FEVER; Start 12/08/16 at 14:30 Acetaminophen (Tylenol Supp) 650 mg Q6H PRN MA PAIN LEVEL 1-3 OR FEVER; Start 12/08/16 at 14:30 Acetaminophen/ Hydrocodone Bitart ([place] (5/325)) 1 tab Q6H PRN PO MODERATE PAIN LEVEL 4-6; Start 12/08/16 at 14:30 Enoxaparin Sodium (Lovenox) 40 mg DAILY SC Last administered on 12/09/16 09:14 ; Admin Dose 40 MG; Start 12/09/16 at 09:00 Diagnostic Test (Pha) (Accu-Chek) 1 ea 02 XX Last administered on 12/09/16 02: 31; Admin Dose 1 EA; Start 12/09/16 at 02:00 Meclizine HCl (Antivert) 25 mg BID PO Last administered on 12/09/16 09:18; Admin Dose 25 MG; Start 12/08/16 at 21:00 Lisinopril (Zestril) 40 mg DAILY PO Last administered on 12/09/16 09:19; Admin Dose 40 MG; Start 12/09/16 at 09:00 Miscellaneous Information 1 ea NOTE XX ; Start 12/08/16 at 15:00 Glucose (Glutose) 15 gm Q15M PRN PO DECREASED GLUCOSE; Start 12/08/16 at 15:00 Glucose (Glutose) 22.5 gm Q15M PRN PO DECREASED GLUCOSE; Start 12/08/16 at 15: 00 Dextrose (D50w Syringe) 25 ml Q15M PRN IV DECREASED GLUCOSE; Start 12/08/16 at 15:00 Dextrose (D50w Syringe) 50 ml Q15M PRN IV DECREASED GLUCOSE; Start 12/08/16 at 15:00 Glucagon (Glucagen) 1 mg Q15M PRN IM DECREASED GLUCOSE; Start 12/08/16 at 15:00 Glucose (Glutose) 15 gm Q15M PRN BUCCAL DECREASED GLUCOSE; Start 12/08/16 at 15 :00 Hydralazine HCl (Apresoline) 10 mg Q6H PRN IV ELEVATED SYSTOLIC BP; Start 12/08 at 22:30 ROXANNE STUBBS MD Dec 09, 2016 11:59
[2016-12-09] MEDS: traMADol 50 MG TAB PO PRN ×2 (13:31→20:56)
--- NOTE | 2016-12-09 19:21 | RADRPT ---
PROCEDURE: MRI Brain without contrast. CLINICAL INDICATION: Dizziness, evaluate for CVA. TECHNIQUE: An MRI of the brain was performed utilizing the following sequences: Sagittal and axial T1 weighted, axial T2 weighted, axial diffusion weighted with ADC mapping, coronal GRE, and axial F LAIR. COMPARISON: Brain CT and CTA 12/08/2016. FINDINGS: No diffusion weighted abnormalities are seen to suggest the presence of acute ischemia or recent inf arct. No hypointense signal abnormalities are seen on the GRE images to suggest the presence of blo od degradation products. There is no evidence of intracranial hemorrhage, mass effect, or midline s hift. No extra-axial fluid collections are seen. The ventricles and sulci are mildly enlarged indica tive of volume loss. There are mild scattered foci of T2 FLAIR hyperintensity in the white matter, which are nonspecific in etiology but likely reflect chronic small vessel ischemic changes. No abnormal intracranial vascular flow void is noted. The visualized paranasal sinuses demonstrate p artial opacification of ethmoid air cells and complete opacification of left frontal sinus, otherwis e mild to moderate scattered mucosal thickening. There is small fluid level in the right maxillary s inus. IMPRESSION: 1. No acute intracranial hemorrhage, infarction or mass. 2. Mild chronic small vessel ischemic changes. 3. Mild generalized cerebral volume loss. 4. Moderate paranasal sinus disease with small fluid level in the right maxillary sinus. RPTAT: HH .Lino Saha MD, MD Date Time Electronically viewed and signed by .Lino Saha MD, MD on 12/09/2016 19:20 .N/
[2016-12-09] MEDS: ATORVASTATIN 80 MG TAB PO SCH (20:53)
[2016-12-10] VITALS (10 sets, daily range): BP systolic 123–193; BP diastolic 60–86; PULSE 64–71; RESP 16–18
[2016-12-10] MEDS: ACCU-CHEK XX SCH (02:00)
[2016-12-10] MEDS: SOD CHLORIDE 0.9% 1,000 ML IV SCH (06:03)
[2016-12-10 07:15] LABS: ADD UMIC YES; UR ASCORBIC ACID NEGATIVE (NEGATIVE); UR BACTERIA FEW /HPF (NONE SEEN); UR BILIRUBIN (Dip) NEGATIVE (NEGATIVE); UR BLOOD (Dip) NEGATIVE (NEGATIVE); UR CLARITY CLEAR (CLEAR); UR COLOR STRAW (YELLOW); UR GLUCOSE (Dip) NEGATIVE (NEGATIVE); UR KETONES (Dip) NEGATIVE (NEGATIVE); UR LEUKOCYTE ESTERASE (Dip) TRACE Leu/ul (NEGATIVE); UR NITRITE (Dip) NEGATIVE (NEGATIVE); UR RBC 2 /HPF (0-5); UR SPECIFIC GRAVITY (Dip) 1.011 (1.003-1.030); UR SQUAMOUS EPITHELIAL CELL FEW /HPF (FEW); UR TOTAL PROTEIN (Dip) NEGATIVE (NEGATIVE); UR UROBILINOGEN (Dip) NEGATIVE (NEGATIVE)
[2016-12-10 07:26] LABS: OPIATES Negative (NEGATIVE)
[2016-12-10 07:34] LABS: BARBITURATES Negative (NEGATIVE); BENZODIAZEPINES Negative (NEGATIVE); CANNABINOIDS Negative (NEGATIVE); COCAINE Negative (NEGATIVE)
[2016-12-10 08:26] LABS: BASOPHIL # 0.1 10^3/ul (0.0-0.1); BASOPHILS % 0.8 % (0.0-2.0); EOSINOPHILS # 0.4 10^3/ul (0.0-0.5); EOSINOPHILS % 4.8 % (0.0-7.0); HEMATOCRIT 39.3 % (37.0-47.0); HEMOGLOBIN 12.4 g/dl (12.0-16.0); LYMPHOCYTES # 4.1 10^3/ul (0.8-2.9); LYMPHOCYTES % 48.9 % (15.0-51.0); MEAN CORPUSCULAR HEMOGLOBIN 26.2 pg (29.0-33.0); MEAN CORPUSCULAR HGB CONC 31.6 g/dl (32.0-37.0); MEAN CORPUSCULAR VOLUME 83.1 fl (82.0-101.0); MEAN PLATELET VOLUME 11.3 fl (7.4-10.4); MONOCYTE # 0.6 10^3/ul (0.3-0.9); MONOCYTES % 6.8 % (0.0-11.0); NEUTROPHIL # 3.1 10^3/ul (1.6-7.5); PLATELET COUNT 188 10^3/UL (140-415); RED BLOOD COUNT 4.73 10^6/ul (4.20-5.40); RED CELL DISTRIBUTION WIDTH 13.2 % (11.5-14.5); WHITE BLOOD COUNT 8.3 10^3/ul (4.8-10.8)
[2016-12-10] MEDS: ASPIRIN 81 MG TAB PO SCH (08:34)
[2016-12-10] MEDS: LISINOPRIL 20 MG TAB PO SCH (08:35)
[2016-12-10] MEDS: MECLIZINE 25 MG TAB PO SCH (08:35)
[2016-12-10] MEDS: CLOPIDOGREL 75 MG TAB PO SCH (08:35)
[2016-12-10] MEDS: INSULIN ASPART [NOVOLOG] 3 ML PEN SC SCH ×2 (08:36→12:08)
[2016-12-10] MEDS: INSULIN GLARGINE [LANtus] 3 ML PEN SC SCH (08:37)
[2016-12-10] MEDS: ENOXAPARIN 40 MG/0.4 ML SYG SC SCH (08:38)
[2016-12-10 08:55] LABS: CALCIUM 8.7 mg/dl (8.4-10.2); CREATININE 0.75 mg/dl (0.44-1.00); MAGNESIUM 1.3 mg/dl (1.7-2.5)
--- NOTE | 2016-12-10 08:56 | PDOCDIS ---
Discharge Instructions CONDITION Patient Condition: Stable HOME CARE INSTRUCTIONS: Special Diet: Low Chol/Low Fat/2g sodium FOLLOW UP/APPOINTMENTS Follow-up Plan 1.Follow up with primary care physician in 1 week-Recommend outpatient neurology eval If you don't have one please let someone know, we can give you resources that may help you pick one. You may also call your insurance company to assign one to you. Review your medication list with your nurse before leaving and if you need new prescriptions please let your nurse know. I may have made changes to your home medications or given you new prescriptions, please let your primary doctor know as well. Stay compliant with your medications and report any side effects to your PCP or pharmacist. Return to the ER if you have any concerns and cannot reach your doctors or call your insurance company, they usually have a nurse that can help you. 2. Call 911 or go to the nearest emergency room if experiencing loss of consciousness, dizziness, chest pain, shortness of breath, vomiting/abdominal pain, speech difficulties, motor weakness or any unusual symptoms. KATHERIN AYALA NP Dec 10, 2016 08:56
[2016-12-10] MEDS ORDERED: MAGNESIUM SULFATE 2 GM/50 ML 50 ML IVPB ONE (09:00)
[2016-12-10] MEDS ORDERED: METOPROLOL 25 MG TAB PO SCH (09:00)
[2016-12-10] MEDS ORDERED: ALPRAZOLAM 0.5 MG TAB PO PRN (09:00)
[2016-12-10] MEDS ORDERED: ASPI81TA3 PO (09:26)
[2016-12-10] MEDS ORDERED: LISI40TA9 PO (09:26)
[2016-12-10] MEDS ORDERED: METO-448 PO (09:26)
[2016-12-10] MEDS ORDERED: ALPR0.25 PO (09:26)
[2016-12-10] MEDS ORDERED: CLOP75TA28 PO (09:26)
[2016-12-10] MEDS ORDERED: TRAM50TA2 PO (09:26)
[2016-12-10] MEDS ORDERED: ATOR80TA75 PO (09:26)
[2016-12-10] MEDS ORDERED: MECL-77 PO (09:27)
--- NOTE | 2016-12-10 09:31 | DS ---
Date/Time of Note Date/Time of Note DATE: 12/10/16 TIME: 09:30 Discharge Summary Admission/Discharge Info Admit Date/Time Dec 08, 2016 at 13:05 Discharge Date/Time Discharge Diagnosis 1. 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 CTA with Severe segmental stenosis of M1 segment of left middle cerebral artery, Multifocal moderate to severe stenosis of the right posterior cerebral artery. CTA neck with no significant stenosis of carotid arteries. 2. Possible vertigo/disequilibrium. Resolved 3. Essential hypertension 4. Hypercholesterolemia. 5. DMII. A1C 9.7 Consults . Procedures 12/08/2016. CTA head. IMPRESSION: 1. Severe segmental stenosis of M1 segment of left middle cerebral artery. 2. Multifocal moderate to severe stenosis of the right posterior cerebral artery. 3. Mild to moderate stenosis of cavernous and supraclinoid segments of the internal carotid arteries. 4. Otherwise no significant stenosis in the remainder of major intracranial arteries. Hx of Present Illness This is a 71-year-old female history of type 2 diabetes, hypertension and hypercholesterolemia who presented with dizziness and unsteady gait associated with headache, nausea and vomiting which started around 7 PM last night. She denied any chest pain, palpitation, numbness/tingling, vision changes, speech difficulties, oral, ear discharges, earache, tinnitus or shortness of breath. Patient denied any falls. Initial labs unremarkable except for elevated blood glucose 256. Patient also had elevated blood pressure 200/83 upon presentation. EKG without any ST or T- wave changes. Patient was given some IV fluids , antiemetics and meclizine in the emergency room with some improvement in her symptoms. A CTA of brain showed Severe segmental stenosis of M1 segment of left middle cerebral artery, Multifocal moderate to severe stenosis of the right posterior cerebral artery and Mild to moderate stenosis of cavernous and supraclinoid segments of the internal carotid arteries. CTA neck was negative for any carotid stenosis. Patient was admitted for further evaluation. Hospital Course Patient was started on maximal medical therapy with dual antiplatelet agents, high intensity statin and antihypertensives. She was also instructed on lifestyle modification with healthy diet. Patient responded well to meclizine trial for underlying possible vertigo and was resolved. Patient was evaluated by neurology and there was no further recommendation for neurosurgery. MRI brain negative for any acute ischemic events. At this point and recommended to continue maximal medical therapy. Blood pressure medication was adjusted with up titration of lisinopril to 40 mg with addition of metoprolol. Her blood pressure remained stable thereafter. She was continued on statin for hypercholesteremia. For diabetes, patient has continued insulin Lantus. Her A1c was 9.7. At this time, patient is feeling back to her baseline. There was no further dizziness. There is no further inpatient workup is indicated and patient is medically stable for discharge with outpatient follow-up. Disposition: Home. Patient was given discharge instructions in Malay translation. Patient verbalized discharge instructions. Approximately 60 minutes was spent in coordinating the discharge on this patient. Patient was seen in collaboration with . Home Meds Active Scripts Meclizine Hcl* (Meclizine Hcl*) 25 Mg Tablet, 25 MG PO Q8H Y for DIZZINESS, #30 TAB Prov:AYALAKATHERIN V. COLLECTION TELLER 12/10/16 Alprazolam* (Xanax*) 0.25 Mg Tablet, 0.25 MG PO Q8H Y for ANXIETY, #30 TAB Prov:AYALAKATHERIN V. COLLECTION TELLER 12/10/16 Tramadol HCl (Tramadol HCl) 50 Mg Tablet, 50 MG PO Q6H Y for PAIN LEVEL 7-10, # 30 TAB Prov:AYALAKATHERIN V. COLLECTION TELLER 12/10/16 Aspirin (Aspirin) 81 Mg Chew, 81 MG PO DAILY, #30 TAB Prov:AYALAMONTRELLA V. COLLECTION TELLER 12/10/16 Metoprolol Tartrate* (Lopressor*) 25 Mg Tab, 25 MG PO BID, #60 TAB Prov:AYALAKATHERIN V. COLLECTION TELLER 12/10/16 Lisinopril* (Lisinopril*) 40 Mg Tablet, 40 MG PO DAILY, #30 TAB Prov:AYALAKATHERIN V. COLLECTION TELLER 12/10/16 Atorvastatin* (Atorvastatin*) 80 Mg Tablet, 80 MG PO HS, #30 TAB Prov:AYALAKATHERIN V. COLLECTION TELLER 12/10/16 Clopidogrel Bisulfate (Clopidogrel) 75 Mg Tablet, 75 MG PO DAILY, #30 TAB Prov:AYALAMONTRELLA V. COLLECTION TELLER 12/10/16 Reported Medications Insulin Glargine* (Lantus*) 100 Unit/Ml Soln, 20 UNIT SC DAILY, EA 06/11/14 Glipizide XL* (Glipizide XL*) 5 Mg Tabsr, 10 MG PO DAILY, TAB 02/28/14 Metformin* (Glucophage*) 1,000 Mg Tablet, 1000 MG PO BID, TAB 02/20/14 Discontinued Reported Medications Lisinopril* (Lisinopril*) 20 Mg Tablet, 20 MG PO DAILY, TAB 02/20/14 Atorvastatin Calcium (Atorvastatin Calcium) 10 Mg Tab, 10 MG PO HS, TAB 02/20/14 Discontinued Scripts Ciprofloxacin Hcl* (Ciprofloxacin Hcl*) 500 Mg Tablet, 500 MG PO BID for 7 Days , TAB Prov:LONNIE BRYANT COLLECTION TELLER 02/21/14 Follow-up Plan 1.Follow up with primary care physician in 1 week-Recommend outpatient neurology eval If you don't have one please let someone know, we can give you resources that may help you pick one. You may also call your insurance company to assign one to you. Review your medication list with your nurse before leaving and if you need new prescriptions please let your nurse know. I may have made changes to your home medications or given you new prescriptions, please let your primary doctor know as well. Stay compliant with your medications and report any side effects to your PCP or pharmacist. Return to the ER if you have any concerns and cannot reach your doctors or call your insurance company, they usually have a nurse that can help you. 2. Call 911 or go to the nearest emergency room if experiencing loss of consciousness, dizziness, chest pain, shortness of breath, vomiting/abdominal pain, speech difficulties, motor weakness or any unusual symptoms. Primary Care Provider Not On Staff Doctor Pending Labs Laboratory Tests Test 12/09/16 11:53 12/09/16 17:10 12/09/16 21:00 12/10/16 04:35 Bedside Glucose 211mg/dL (70-220) 166mg/dL (70-220) 157mg/dL (70-220) Urine Opiates Screen Negative (NEGATIVE) Urine Barbiturates Negative (NEGATIVE) Urine Amphetamines Screen Negative (NEGATIVE) Urine Benzodiazepines Screen Negative (NEGATIVE) Urine Cocaine Screen Negative (NEGATIVE) Urine Cannabinoids Negative (NEGATIVE) Test 12/10/16 06:37 12/10/16 08:33 White Blood Count 8.310^3/ul (4.8-10.8) Red Blood Count 4.7310^6/ul (4.20-5.40) Hemoglobin 12.4g/dl (12.0-16.0) Hematocrit 39.3% (37.0-47.0) Mean Corpuscular Volume 83.1fl (82.0-101.0) Mean Corpuscular Hemoglobin 26.2pg (29.0-33.0) Mean Corpuscular Hemoglobin Concent 31.6g/dl (32.0-37.0) Red Cell Distribution Width 13.2% (11.5-14.5) Platelet Count 44505^3/UL (140-415) Mean Platelet Volume 11.3fl (7.4-10.4) Neutrophils % 38.0% (39.0-77.0) Lymphocytes % 48.9% (15.0-51.0) Monocytes % 6.8% (0.0-11.0) Eosinophils % 4.8% (0.0-7.0) Basophils % 0.8% (0.0-2.0) Nucleated Red Blood Cells % 0.0/100WBC (0.0-0.0) Neutrophils # 3.110^3/ul (1.6-7.5) Lymphocytes # 4.110^3/ul (0.8-2.9) Monocytes # 0.610^3/ul (0.3-0.9) Eosinophils # 0.410^3/ul (0.0-0.5) Basophils # 0.110^3/ul (0.0-0.1) Nucleated Red Blood Cells # 0.010^3/ul (0.0-0.0) Sodium Level 143mmol/L (135-144) Potassium Level 4.0mmol/L (3.5-5.1) Chloride Level 108mmol/L (97-110) Carbon Dioxide Level 24mmol/L (21-31) Anion Gap 15 (8-16) Blood Urea Nitrogen 20mg/dl (7-20) Creatinine 0.75mg/dl (0.44-1.00) Glucose Level 135mg/dl (70-220) Calcium Level 8.7mg/dl (8.4-10.2) Magnesium Level 1.3mg/dl (1.7-2.5) Bedside Glucose 143mg/dL (70-220) AYALA,KATHERIN V. COLLECTION TELLER Dec 10, 2016 09:30
== END 2016-12-10 17:00 | disposition home or self-care (01) ==
LOC: E/R 09:08 → MS3 13:05 → TEL 20:20 → MS3 20:20
PROVIDERS: ADMIT Internal Medicine; ATTEND Internal Medicine
DX: R42 Dizziness and giddiness (principal); R11.2 Nausea with vomiting, unspecified; I10 Essential (primary) hypertension; I70.90 Unspecified atherosclerosis; E11.9 Type 2 diabetes mellitus without complications; E78.00 Pure hypercholesterolemia, unspecified; E66.9 Obesity, unspecified; Z68.25 Body mass index [BMI] 25.0-25.9, adult; Z79.82 Long term (current) use of aspirin; Z79.4 Long term (current) use of insulin
CPT/HCPCS: 36415; 70450; 70496; 70498; 70551; 71010; 73562; 80048; 80053; 80061; 80307; 81001; 82962; 83036; 83735; 84100; 84443; 84484; 85025; 85610; 85730; 90686; 92523; 93005; 93306; 96374; 96375; 97162; 99285; G0378; G9162; G9163; G9164; J0360; J1650; J1815; J2270; J2405; J3475; J7030; J7040; Q9967